=== PATIENT | female | born 1970 | race Caucasian/White ===

== ENCOUNTER 2016-12-15 22:02 | Emergency (ER) | payer OTHER ==
[~2016-12-15] VITALS: Ht 167.6 cm; Wt 93.4 kg
[~2016-12-15 22:02] MED LIST: GLIP5TER PO; METF500T64 PO
[2016-12-15 22:28] VITALS: BP 140/90
[2016-12-15] MEDS ORDERED: ASPI81CT89 PO (22:40)
[2016-12-15] MEDS ORDERED: BENA20TA PO (22:40)
[2016-12-15] MEDS ORDERED: ORE25 PO (22:40)
[2016-12-16 01:22] LABS: APPEARANCE,URINE CLEAR (CLEAR); BILIRUBIN,URINE NEGATIVE (NEGATIVE); BLOOD, URINE NEGATIVE (NEGATIVE); COLOR,URINE YELLOW (YELLOW); LEUKOCYTE ESTERASE ,URINE NEGATIVE (NEGATIVE); NITRITE, URINE NEGATIVE (NEGATIVE); PROTEIN,URINE NEGATIVE (NEGATIVE); UGLUCOSE 3+ (NEGATIVE); UROBILINOGEN,URINE 0.2 EU/dL (0.2 - 1)
--- NOTE | 2016-12-16 01:23 | NUR ---
Patient being evaluated by physician at bedside., with orders and carried out.
[2016-12-16] MEDS ORDERED: oxyCODONE/APAP 5/325 MG 1 TAB TAB PO ONE (01:25)
[2016-12-16] MEDS ORDERED: ONDANSETRON 4 MG ODT PO ONE (01:25)
[2016-12-16] MEDS ORDERED: KETOROLAC 60 MG/2 ML VIAL IM ONE (01:25)
--- NOTE | 2016-12-16 01:30 | NUR ---
MEDICATED PER [facility] ODER AND TOLERATED WELL.
[2016-12-16 01:33] LABS: RBC,URINE 0-5 (RARE) /HPF (0-5); WBC,URINE 0-5 (RARE) /HPF (0-5)
[2016-12-16 01:34] LABS: BACTERIA,URINE OCCASSIONAL /HPF (None Seen); SQUAMOUS EPITHELIAL CELL,UR 0-3 (FEW) /LPF (0-3 (FEW))
--- NOTE | 2016-12-16 01:40 | NUR ---
TO ER BED 8
[2016-12-16] MEDS ORDERED: INSULIN HUMAN REGULAR 100 UNITS/ML 10 ML VIAL IVP ONE (02:00)
[2016-12-16 02:17] LABS: BASOPHILS # (AUTO) 0.1 K/uL (0.00-0.22); BASOPHILS % (AUTO) 0.9 % (0.0-2.0); EOSINOPHILS # (AUTO) 0.3 K/uL (0-0.4); EOSINOPHILS % (AUTO) 2.8 % (0.0-4.0); HEMATOCRIT 43.2 % (36-48); HEMOGLOBIN 14.1 g/dL (12.0-16.0); LYMPHOCYTES # (AUTO) 3.9 K/uL (2.5-16.5); LYMPHOCYTES % (AUTO) 39.3 % (20.5-51.1); MEAN CORPUSCULAR HEMOGLOBIN 27 pg (27-31); MEAN CORPUSCULAR HGB CONC 33 g/dL (33-37); MEAN CORPUSCULAR VOLUME 83 fL (80-94); MONOCYTES # (AUTO) 0.6 K/uL (0.8-1.0); MONOCYTES % (AUTO) 6.4 % (1.7-9.3); NEUTROPHILS # (AUTO) 5.1 K/uL (1.8-7.7); NEUTROPHILS % (AUTO) 50.6 % (42.2-75.2); PLATELET COUNT (AUTO) 351 K/uL (140-450); RED CELL DISTRIBUTION WIDTH 12.2 % (11.6-13.7)
[2016-12-16 02:29] LABS: ALBUMIN 3.5 g/dL (3.4-5.0); ANION GAP 11.5 (8-16); CARBON DIOXIDE 28.7 mmol/L (21-32); CREATININE 0.9 mg/dL (0.6-1.3); POTASSIUM 4.2 mmol/L (3.5-5.1); TOTAL BILIRUBIN 0.5 mg/dL (0.0-1.0)
[2016-12-16 02:34] LABS: PARTIAL THROMBOPLASTIN TIME 25.2 secs (22-35.6); PROTHROMBIN TIME 9.9 secs (10.8-13.4)
[2016-12-16] MEDS ORDERED: NACL 0.9% 1,000 ML IV ONE (02:55)
--- NOTE | 2016-12-16 03:57 | NUR ---
Patient discharged with v/s stable. Written and verbal after care instructions given and explained. Patient alert, oriented and verbalized understanding of instructions. Ambulatory with steady gait. All questions addressed prior to discharge. ID band removed. Patient advised to follow up with PMD. Rx of ZOFRAN AND NORCO given. Patient educated on indication of medication including possible reaction and side effects. Opportunity to ask questions provided and answered.
[2016-12-16 03:59] VITALS: BP 135/80
== END 2016-12-16 03:59 | disposition home or self-care (01) ==
LOC: MED 22:02
DX: N20.0 Calculus of kidney (principal); E11.9 Type 2 diabetes mellitus without complications; Z87.442 Personal history of urinary calculi; Z79.82 Long term (current) use of aspirin; Z79.899 Other long term (current) drug therapy; Z79.84 Long term (current) use of oral hypoglycemic drugs
CPT/HCPCS: 36415; 74176; 80053; 81001; 82948; 85025; 85610; 85730; 96361; 96372; 96374; 99285; J1815; J1885; J7030; S0119

== ENCOUNTER 2017-12-16 14:10 | Emergency (ER) | payer OTHER ==
[~2017-12-16] VITALS: Ht 170.2 cm; Wt 95.3 kg
[~2017-12-16 14:10] MED LIST changes: +ASPI81CT89 PO; +BENA20TA PO; +GLU500 PO; -METF500T64 PO; +ORE25 PO
[2017-12-16 14:39] VITALS: BP 114/73
--- NOTE | 2017-12-16 14:45 | NUR ---
BS-334MG/DL
--- NOTE | 2017-12-16 15:00 | NUR ---
PATIENT PRESENTS TO ED WITH COMPLAINTS OF LOWER BACK PAIN. PATIENT STATES SHE HAS A KIDNEY INFECTION. DENIES N/V/D; SKIN IS PINK/WARM/DRY; AAOX4 WITH EVEN AND STEADY GAIT; LUNGS CLEAR BL; HR EVEN AND REGULAR; PT DENIES ANY FEVER, CP, SOB, OR COUGH AT THIS TIME; PATIENT STATES PAIN OF 9/10 AT THIS TIME; VSS; PATIENT POSITIONED FOR COMFORT; HOB ELEVATED; BEDRAILS UP X2; BED DOWN. ER MD MADE AWARE OF PT STATUS.
--- NOTE | 2017-12-16 15:00 | NUR ---
PT AMBULATES TO BED 6
[2017-12-16] MEDS ORDERED: NACL 0.9% 1,000 ML IV SCH (15:51)
[2017-12-16] MEDS ORDERED: ONDANSETRON 4 MG/2 ML VIAL IVP ONE (15:55)
[2017-12-16] MEDS ORDERED: MORPHINE SULFATE 4 MG/ML SYR IVP ONE (15:55)
[2017-12-16] MEDS ORDERED: KETOROLAC 30 MG/ML VIAL IVP ONE (15:55)
--- NOTE | 2017-12-16 16:06 | NUR ---
PT TAKEN TO CT IN WHEELCHAIR
[2017-12-16 16:15] LABS: APPEARANCE,URINE CLEAR (CLEAR); BILIRUBIN,URINE NEGATIVE (NEGATIVE); BLOOD, URINE NEGATIVE (NEGATIVE); COLOR,URINE YELLOW (YELLOW); LEUKOCYTE ESTERASE ,URINE NEGATIVE (NEGATIVE); NITRITE, URINE NEGATIVE (NEGATIVE); PH,URINE 5.5 (5.0-9.0); UGLUCOSE 3+ (NEGATIVE)
[2017-12-16 16:31] LABS: RBC,URINE 0-5 (RARE) /HPF (0-5); WBC,URINE 0-5 (RARE) /HPF (0-5); YEAST,URINE Rare /HPF (None Seen)
[2017-12-16 16:41] LABS: BASOPHILS # (AUTO) 0.1 K/uL (0.00-0.22); BASOPHILS % (AUTO) 0.9 % (0.0-2.0); EOSINOPHILS # (AUTO) 0.1 K/uL (0-0.4); EOSINOPHILS % (AUTO) 1.5 % (0.0-4.0); HEMATOCRIT 39.6 % (36-48); HEMOGLOBIN 13.2 g/dL (12.0-16.0); LYMPHOCYTES # (AUTO) 2.8 K/uL (2.5-16.5); LYMPHOCYTES % (AUTO) 45.3 % (20.5-51.1); MEAN CORPUSCULAR HEMOGLOBIN 28 pg (27-31); MEAN CORPUSCULAR HGB CONC 33 g/dL (33-37); MONOCYTES # (AUTO) 0.5 K/uL (0.8-1.0); MONOCYTES % (AUTO) 7.8 % (1.7-9.3); NEUTROPHILS # (AUTO) 2.8 K/uL (1.8-7.7); NEUTROPHILS % (AUTO) 44.5 % (42.2-75.2); PLATELET COUNT (AUTO) 293 K/uL (140-450); RED BLOOD CELL COUNT(AUTO) 4.77 MIL/uL (4.20-5.40); RED CELL DISTRIBUTION WIDTH 13.2 % (11.6-13.7); WHITE BLOOD COUNT (AUTO) 6.2 K/uL (4.8-10.8)
[2017-12-16 16:59] LABS: ALBUMIN 3.3 g/dL (3.4-5.0); ANION GAP 11.1 (8-16); CREATININE 0.6 mg/dL (0.6-1.3); POTASSIUM 4.1 mmol/L (3.5-5.1); TOTAL BILIRUBIN 0.4 mg/dL (0.0-1.0)
[2017-12-16 18:02] VITALS: BP 110/70
--- NOTE | 2017-12-16 18:02 | NUR ---
Patient discharged with v/s stable. Written and verbal after care instructions given and explained. Patient alert, oriented and verbalized understanding of instructions. Ambulatory with steady gait. All questions addressed prior to discharge. ID band removed. Patient advised to follow up with PMD. Rx of FLOMAX AND TRAMADOL given. Patient educated on indication of medication including possible reaction and side effects. Opportunity to ask questions provided and answered.
== END 2017-12-16 18:02 | disposition home or self-care (01) ==
LOC: MED 14:10
DX: N20.0 Calculus of kidney (principal); E11.65 Type 2 diabetes mellitus with hyperglycemia; E11.40 Type 2 diabetes mellitus with diabetic neuropathy, unspecified; Z79.899 Other long term (current) drug therapy; Z79.84 Long term (current) use of oral hypoglycemic drugs
CPT/HCPCS: 36415; 74176; 80053; 81001; 81025; 82150; 82948; 83690; 84703; 85025; 96361; 96374; 96375; 99285; J1885; J2270; J2405; J7030

== ENCOUNTER 2018-08-20 17:10 | Emergency (ER) | payer OTHER ==
[~2018-08-20] VITALS: Ht 170.2 cm; Wt 104.8 kg
[~2018-08-20 17:10] MED LIST changes: +ASPI-1718 PO; -ASPI81CT89 PO
[2018-08-20 17:15] VITALS: BP_SYST 111; BP_SYST 144; BP_DIAS 50; BP_DIAS 71
--- NOTE | 2018-08-20 17:37 | NUR ---
RO FROM CLINIC FOR SYNCOPAL EPISODE C/O INTERMITTENT LEFT CHEST PAIN RADIATING TO LEFT ARM X5 DAYS. PATIENT HAD SYNCOPE WHILE SITTING ON THE CHAIR IN THE CLINIC. BS FIELD 500. BP FIELD 187/102,169/114.DENIES FALL OR TRAUMA. HX:DM,HTN,HIGH CHOL. TAKING METFORMIN AND GLIPIZIDE. PATIENT STATES PAIN OF 4/10 AT THIS TIME. PATIENT POSITIONED FOR COMFORT; HOB ELEVATED; BEDRAILS UP X2; BED DOWN. ER MADE AWARE OF PT STATUS. Addendum: 08/20/18 at 1757 by [email or web address] PER PATIENT, FIRST PRE SYNCOPAL EPISODE AT HOME,WEAK DIZZY. DAUGHTER GAVE HER SUGAR.
--- NOTE | 2018-08-20 17:37 | NUR ---
Note undone in EDM - 08[facility]20/18 [facility] 1750 [facility], FIRST PRE SYNCOPAL EPISODE AT HOME,WEAK DIZZY. DAUGHTER GAVE HER SUGAR. PATIENT REMEMBERED EPISODE.PATIENT HAD ANOTHER EPISODE WHILE SITTING ON THE CHAIR IN THE CLINIC. WENT TO CLINIC FOR INTERMITTENT LT. CHEST PAIN TO LT. ARM X5 DAYS. BS FIELD 500. BP FIELD 187/102,169/114.DENIES FALL OR TRAUMA. HX:DM,HTN,HIGH CHOL. TAKING METFORMIN AND GLIPIZIDE.
[2018-08-20] MEDS ORDERED: MEX2.5 PO (18:18)
[2018-08-20] MEDS ORDERED: ADAL40SY SQ (18:18)
[2018-08-20] MEDS ORDERED: VITA1TAB44 PO (18:18)
[2018-08-20] MEDS ORDERED: KETOROLAC 30 MG/ML VIAL IVP ONE (18:30)
[2018-08-20 18:51] LABS: BASOPHILS # (AUTO) 0.1 K/uL (0.00-0.22); BASOPHILS % (AUTO) 0.7 % (0.0-2.0); EOSINOPHILS # (AUTO) 0.3 K/uL (0-0.4); EOSINOPHILS % (AUTO) 2.7 % (0.0-4.0); HEMATOCRIT 34.3 % (36-48); HEMOGLOBIN 11.6 g/dL (12.0-16.0); LYMPHOCYTES # (AUTO) 3.3 K/uL (2.5-16.5); MEAN CORPUSCULAR HEMOGLOBIN 30 pg (27-31); MEAN CORPUSCULAR HGB CONC 34 g/dL (33-37); MEAN CORPUSCULAR VOLUME 88.5 fL (80-94); MONOCYTES # (AUTO) 0.5 K/uL (0.8-1.0); MONOCYTES % (AUTO) 5.7 % (1.7-9.3); NEUTROPHILS # (AUTO) 5.3 K/uL (1.8-7.7); NEUTROPHILS % (AUTO) 55.9 % (42.2-75.2); PLATELET COUNT (AUTO) 362 K/uL (140-450); RED BLOOD CELL COUNT(AUTO) 3.88 MIL/uL (4.20-5.40); RED CELL DISTRIBUTION WIDTH 14.2 % (11.6-13.7); WHITE BLOOD COUNT (AUTO) 9.5 K/uL (4.8-10.8)
[2018-08-20 18:52] LABS: APPEARANCE,URINE CLEAR (CLEAR); BILIRUBIN,URINE NEGATIVE (NEGATIVE); BLOOD, URINE NEGATIVE (NEGATIVE); COLOR,URINE YELLOW (YELLOW); NITRITE, URINE NEGATIVE (NEGATIVE); UGLUCOSE 3+ (NEGATIVE)
[2018-08-20 18:56] LABS: LEUKOCYTE ESTERASE ,URINE NEGATIVE (NEGATIVE)
--- NOTE | 2018-08-20 19:05 | NUR ---
Pt report given to CHRISTO VALIENTE. Transfer of care at this time.
[2018-08-20 19:07] LABS: CARBON DIOXIDE 28.9 mmol/L (21-32); CREATININE 0.9 mg/dL (0.6-1.3); POTASSIUM 3.9 mmol/L (3.5-5.1); TOTAL BILIRUBIN 0.3 mg/dL (0.0-1.0)
--- NOTE | 2018-08-20 19:17 | NUR ---
RECEIVED REPORT FROM AM NURSE. PT LAYING IN BED, AT BEDSIDE. REPORTS / INTERMITTENT L SIDED CP. DENIES SOB, N/V OR DIZZINESS. VSS. ALL NEEDS MET AT THIS TIME.
--- NOTE | 2018-08-20 19:45 | NUR ---
DR CONNOLLY AT BEDSIDE
[2018-08-20 20:11] VITALS: BP 121/71
--- NOTE | 2018-08-20 20:11 | NUR ---
Patient discharged with v/s stable. Written and verbal after care instructions given and explained. Patient alert, oriented and verbalized understanding of instructions. Ambulatory with steady gait. All questions addressed prior to discharge. ID band removed. Patient advised to follow up with PMD. Rx of NAPROSYN, NORCO given. Patient educated on indication of medication including possible reaction and side effects. Opportunity to ask questions provided and answered.
== END 2018-08-20 20:11 | disposition home or self-care (01) ==
LOC: MED 17:10
DX: R07.89 Other chest pain (principal); R55 Syncope and collapse; E11.65 Type 2 diabetes mellitus with hyperglycemia; Z87.442 Personal history of urinary calculi; Z79.84 Long term (current) use of oral hypoglycemic drugs; Z79.899 Other long term (current) drug therapy
CPT/HCPCS: 36415; 71045; 80053; 81003; 81025; 82948; 84484; 85025; 93005; 96374; 99284; J1885; Q0092